=== PATIENT | male | born 1970 | race Caucasian/White ===

== ENCOUNTER 2017-09-21 11:14 | Inpatient (IN) | payer SELFPAY ==
[~2017-09-21] VITALS: Ht 154.9 cm; Wt 73.0 kg
[~2017-09-21 11:14] MED LIST: ACET-8386 PO; DOCU-300 PO
[2017-09-21 11:18] VITALS: BP 128/74
--- NOTE | 2017-09-21 11:23 | NUR ---
Patient ambulated to bed 04.
--- NOTE | 2017-09-21 11:23 | NUR ---
Pt taken to bed 4.
--- NOTE | 2017-09-21 11:30 | NUR ---
Patient being evaluated by Dr. Jang at bedside.
--- NOTE | 2017-09-21 11:30 | NUR ---
47/M presents to ED with complaints of left upper chest pain since last night around 1899. Pt states the pain started while sitting at his computer, sharp, intermittent pain, radiating to back, 04/30. Denies N/V/D. Denies fever or chills. AOX4, clear speech, polish speaking. VSS at this time. Placed in a gown, placed on cell assembly pinner, pulse oximetry and blood pressure monitoring. Comfort needs met. No meds taken at home per patient. Denies med hx.
[2017-09-21] MEDS ORDERED: KETOROLAC 30 MG/ML VIAL IM ONE (11:40)
--- NOTE | 2017-09-21 11:43 | NUR ---
X-Ray at bedside.
--- NOTE | 2017-09-21 11:45 | NUR ---
Lab at bedside for blood draw.
[2017-09-21 11:54] LABS: HEMOGLOBIN 14.2 g/dL (12.0-18.0); MEAN CORPUSCULAR VOLUME 95 fL (80-94)
[2017-09-21 12:00] LABS: MEAN CORPUSCULAR HEMOGLOBIN 31 pg (27-31); MEAN CORPUSCULAR HGB CONC 33 g/dL (33-37); PLATELET COUNT (AUTO) 233 K/uL (140-450); RED BLOOD CELL COUNT(AUTO) 4.55 MIL/uL (4.20-6.10); RED CELL DISTRIBUTION WIDTH 12.2 % (11.6-13.7)
[2017-09-21 12:06] LABS: ANION GAP 7.4 (8-16); CARBON DIOXIDE 28.6 mmol/L (21-32); CREATININE 1.1 mg/dL (0.7-1.3)
[2017-09-21 12:11] LABS: ALBUMIN 3.6 g/dL (3.4-5.0); LYMPHOCYTES % (MANUAL) 23 % (20-46); MONOCYTES % (MANUAL) 10 % (5-12); TOTAL BILIRUBIN 0.4 mg/dL (0.0-1.0)
--- NOTE | 2017-09-21 12:28 | NUR ---
Patient resting comfortably in bed. VSS. Comfort needs met. Awaiting results.
[2017-09-21 12:37] LABS: CREATINE KINASE MB 0.1 ng/mL (0-3.6)
[2017-09-21] MEDS ORDERED: NITROGLYCERIN 0.4 MG TAB SL ONE (13:25)
[2017-09-21] MEDS ORDERED: ASPIRIN 325 MG TAB PO ONE (13:25)
--- NOTE | 2017-09-21 14:10 | NUR ---
PT ARRIVED TO UNIT. RECEIVED BEDSIDE REPORT FROM ER NURSE. PT IN STABLE CONDITION.
[2017-09-21] MEDS ORDERED: ACETAMINOPHEN 325 MG TAB PO PRN (14:20)
[2017-09-21] MEDS ORDERED: HYDROcodone/APAP 7.5/325 MG 1 TAB PO PRN (14:20)
[2017-09-21] MEDS ORDERED: ONDANSETRON 4 MG/2 ML VIAL IVP PRN (14:20)
[2017-09-21] MEDS ORDERED: ECOTRIN 81 MG TABEC PO ONE (14:35)
[2017-09-21 15:20] LABS: PROTHROMBIN TIME 10.4 secs (10.8-13.4)
[2017-09-21] MEDS ORDERED: BACLOFEN 10 MG TAB PO PRN (15:30)
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
[2017-09-21] MEDS: NACL 0.9% 1,000 ML IV SCH ×2 (15:34→23:25)
[2017-09-21 15:38] LABS: FREE T4 (FREE THYROXINE) 0.86 ng/dL (0.76-1.46); MAGNESIUM 1.8 mg/dL (1.8-2.4); THYROID STIMULATING HORMONE 0.98 uIU/mL (0.34-3.74)
[2017-09-21 16:00] VITALS: BP 106/70
[2017-09-21] MEDS ORDERED: guaiFENesin 20 MG/ML UDC PO PRN (17:15)
--- NOTE | 2017-09-21 17:30 | NUR ---
CHECKED ON PT IN ROOM. PT IS SITTING UP IN BED EATING DINNER. PT DENIES CHEST PAIN. STATED THAT HIS LEFT ARM HAS PAIN THAT IS TOLERABLE AND THAT HE DOES NOT WANT ANY MEDICATIONS FOR PAIN. ASKED IF PT NEEDED ANYTHING RIGHT NOW. PT STATED NO. CALL LIGHT WITHIN REACH. WILL CONTINUE TO MONITOR.
--- NOTE | 2017-09-21 19:32 | NUR ---
ENDORSED PT TO HISTOLOGIC AIDE NURSE MARIANNA AT BEDSIDE FOR CONTINUITY OF CARE. PT GOT UP OUT OF BED TO BRUSH TEETH. NO SIGNS OF DISTRESS. PT IN STABLE CONDITION.
--- NOTE | 2017-09-21 19:32 | NUR ---
RECEIVED PT AWAKE, DENIES CHEST PAIN BUT COMPLAINING OF TOLERABLE LEFT BACK PAIN 2/10, WILL MEDICATE PRN IF PAIN GET WORST, VITAL SIGNS STABLE, NO SOB NOTED, IVF INFUSING WELL, PLAN OF CARE DISCUSS, CALL LIGHT WITHIN REACH, AT BEDSIDE.
[2017-09-21 20:00] VITALS: BP 102/68
[2017-09-21] MEDS: DOCUSATE SODIUM 100 MG GELCAP PO SCH (20:30)
[2017-09-21] MEDS: METOPROLOL 25 MG TAB PO SCH (20:31)
--- NOTE | 2017-09-21 20:35 | NUR ---
DUE PO MEDICATION TAKEN, SANDWICH PROVIDED PER REQUEST, ALL NEEDS ATTENDED.
--- NOTE | 2017-09-21 22:00 | NUR ---
ROUNDED ON PT, SEEN AWAKE WATCHING TV, APPEARS COMFORTABLE, IVF INFUSING WELL, MONITORED CLOSELY.
[2017-09-22] VITALS: BP 104/64
--- NOTE | 2017-09-22 | NUR ---
PT SLEEPING, EASILY AROUSABLE, VITAL SIGNS STABLE, DENIES CHEST PAIN, IVF INFUSING WELL, CONTINUE TO MONITOR CLOSELY.
[2017-09-22] MEDS: NACL 0.9% 1,000 ML IV SCH ×2 (00:24→10:36)
[2017-09-22 02:25] LABS: APPEARANCE,URINE CLEAR (CLEAR); BILIRUBIN,URINE NEGATIVE (NEGATIVE); BLOOD, URINE NEGATIVE (NEGATIVE); COLOR,URINE YELLOW (YELLOW); LEUKOCYTE ESTERASE ,URINE NEGATIVE (NEGATIVE); NITRITE, URINE NEGATIVE (NEGATIVE); PH,URINE 6.5 (5.0-9.0); UGLUCOSE NEGATIVE (NEGATIVE)
[2017-09-22 02:37] LABS: BARBITURATE, URINE NEG. ng/ml (NEG <=200); BENZODIAZEPINE, URINE NEG. ng/mL (NEG <=200); CANNABINOID, URINE NEG. ng/mL (NEG <=50); COCAINE, URINE NEG. ng/mL (NEG <=300); OPIATE, URINE NEG. ng/mL (NEG <=2000); PHENCYCLIDINE SCREEN,URINE NEG. ng/mL (NEG <=25)
[2017-09-22 04:00] VITALS: BP 112/69
--- NOTE | 2017-09-22 04:00 | NUR ---
PT SLEEPING, EASILY AROUSABLE, DENIES CHEST PAIN, VITAL SIGNS STABLE, IVF INFUSING WELL, MONITORED CLOSELY.
[2017-09-22 05:51] LABS: BASOPHILS # (AUTO) 0.2 K/uL (0.00-0.22); BASOPHILS % (AUTO) 4.7 % (0.0-2.0); EOSINOPHILS # (AUTO) 0.2 K/uL (0-0.4); EOSINOPHILS % (AUTO) 3.7 % (0.0-4.0); HEMATOCRIT 40.2 % (36-52); HEMOGLOBIN 13.6 g/dL (12.0-18.0); LYMPHOCYTES # (AUTO) 1.3 K/uL (2.0-11.5); LYMPHOCYTES % (AUTO) 27.8 % (20.5-51.1); MEAN CORPUSCULAR HEMOGLOBIN 32 pg (27-31); MEAN CORPUSCULAR HGB CONC 34 g/dL (33-37); MEAN CORPUSCULAR VOLUME 94 fL (80-94); MONOCYTES # (AUTO) 0.5 K/uL (0.8-1.0); NEUTROPHILS # (AUTO) 2.5 K/uL (1.8-7.7); NEUTROPHILS % (AUTO) 52.8 % (42.2-75.2); PLATELET COUNT (AUTO) 210 K/uL (140-450); RED BLOOD CELL COUNT(AUTO) 4.27 MIL/uL (4.20-6.10); RED CELL DISTRIBUTION WIDTH 12.1 % (11.6-13.7); WHITE BLOOD COUNT (AUTO) 4.7 K/uL (4.8-10.8)
[2017-09-22 06:00] LABS: ANION GAP 8.9 (8-16); CARBON DIOXIDE 26.4 mmol/L (21-32); POTASSIUM 4.3 mmol/L (3.5-5.1)
[2017-09-22 06:06] LABS: CHOL/HDL RATIO 6.1 (1-4.5); PHOSPHORUS 3.9 mg/dL (2.5-4.9)
--- NOTE | 2017-09-22 06:10 | NUR ---
PT SLEEPING, NO SIGNS OF DISTRESS, IVF INFUSING WELL, MONITORED CLOSELY.
--- NOTE | 2017-09-22 07:11 | NUR ---
PT SLEEPING, NO SIGNS OF DISTRESS, REPORT GIVEN TO DERIC SHARMA FOR CONTINUITY OF CARE.
--- NOTE | 2017-09-22 07:11 | NUR ---
ASSUMED CONTINUITY OF CARE. NO SIGNS AND SYMPTOMS OF ACUTE DISTRESS NOTED. INITIAL ASSESSMENT DONE. KEEP COMFORTABLE ON BED. EXPLAINED DIAGNOSIS, PLAN OF CARE, PAIN MANAGEMENT TEACHING, USE OF CALL LIGHT/BED/TV/BATHROOM. VERBALIZED UNDERSTANDING. CALL LIGHT WITHIN REACH.
[2017-09-22 08:00] VITALS: BP 111/75
--- NOTE | 2017-09-22 08:00 | NUR ---
Patient's Plan of Care was discussed and reviewed with HYBRID DERIVATIVES TRADER: DERIC
[2017-09-22] MEDS: DOCUSATE SODIUM 100 MG GELCAP PO SCH (08:29)
[2017-09-22] MEDS: METOPROLOL 25 MG TAB PO SCH (08:29)
[2017-09-22] MEDS ORDERED: LISINOPRIL 5 MG TAB PO SCH (09:00)
[2017-09-22] MEDS ORDERED: ECOTRIN 81 MG TABEC PO SCH (09:00)
[2017-09-22] MEDS ORDERED: ATORVASTATIN 20 MG TAB PO SCH (09:00)
--- NOTE | 2017-09-22 10:46 | NUR ---
WENT TO BATHROOM WITHOUT ASSISTANCE. TOLERATED WELL. NO C/O PAIN.
[2017-09-22 12:00] VITALS: BP 112/73
[2017-09-22] MEDS ORDERED: BACL10TA4 PO (13:03)
--- NOTE | 2017-09-22 13:50 | NUR ---
EXPLAINED TO PT. AND PT. REY CintronJIGNESH ABOUT MD D/C ORDER, MD D/C PRESCRIPTION L;IST EDUCATION, D/C INSTRUCTIONS AND TEACHING, DISEASE MANAGEMENT TEACHING, MD FOLLOW UP, DIET, PAIN MANAGEMENT TEACHING. VERBALIZED UNDERSTANDING.
--- NOTE | 2017-09-22 14:30 | NUR ---
REFUSED TO USE WHEELCHAIR FOR D/C. PT. AMBULATORY AND HAD STEADY GAIT AND BALANCE. D/C HOME, ACCOMPANIED BY PT. REY BURGESS. PT. AWAKE, ALERT, AND ORIENTED X4. SPEECH CLEAR. NO C/O PAIN. NO SOB, NOTED. IN STABLE CONDITION. INFORMED CHARGE NURSE TONI BERGERON.
== END 2017-09-22 14:30 | disposition home or self-care (01) | DRG 206 ==
LOC: MED 11:14 → MTU 13:59
PROVIDERS: ADMIT Family Medicine; ATTEND Family Medicine
DX: M94.0 Chondrocostal junction syndrome [Tietze] (principal); E66.9 Obesity, unspecified; I10 Essential (primary) hypertension; E78.5 Hyperlipidemia, unspecified; Z68.30 Body mass index [BMI] 30.0-30.9, adult; Z88.0 Allergy status to penicillin; Z79.899 Other long term (current) drug therapy
CPT/HCPCS: 36415; 71010; 80048; 80053; 80305; 81003; 82550; 82553; 83036; 83690; 83735; 83880; 84100; 84439; 84443; 84484; 85025; 85610; 85730; 87081; 93005; 96372; 99285; J1885; J7030; Q0092

== ENCOUNTER 2023-06-12 10:56 | Emergency (ER) | payer SELFPAY ==
[~2023-06-12] VITALS: Ht 154.9 cm; Wt 76.9 kg
[~2023-06-12 10:56] MED LIST changes: -ACET-8386 PO; +ASPI81CT95 PO; +ATOR20TA40 PO; +IBUP-2216 PO; +PANT40EC56 PO
[2023-06-12 11:11] VITALS: BP 121/89; PULSE 71; RESP 18; TEMP 97.6; O2SAT 96
[2023-06-12 11:30] VITALS: BP 144/87; PULSE 69; RESP 16; TEMP 97.6; O2SAT 98
== END 2023-06-12 12:25 | disposition home or self-care (01) ==
LOC: MED 10:56
DX: K40.90 Unilateral inguinal hernia, without obstruction or gangrene, not specified as recurrent (principal); Z88.0 Allergy status to penicillin; Z79.899 Other long term (current) drug therapy
CPT/HCPCS: 99281